=== PATIENT | male | born 1950 | race Caucasian/White ===

== ENCOUNTER → 2021-12-03 | Outpatient (CLI) | payer BC ==
[~2021-12-03] MED LIST: CYMBALTA60 MG PO; DEMEROL100 MG PO; HCTZ/TRIAMTEREN1 CA2 PO; LISINOPRIL2.5 MG PO; LOPRESSOR25 MG PO; NEXIUM40 MG PO; PREDNISONE10 MG PO; QUINAPRIL40 MG PO; VENTOLIN 02.5 MG/3 M NEB; ZITHROMAX250 MG PO
== END | disposition home or self-care (01) ==
LOC: WOUNDCARE 11:12
PROVIDERS: ATTEND Nurse Practitioner Family
DX: E11.621 Type 2 diabetes mellitus with foot ulcer (principal); L97.421 Non-pressure chronic ulcer of left heel and midfoot limited to breakdown of skin; L97.521 Non-pressure chronic ulcer of other part of left foot limited to breakdown of skin; E11.622 Type 2 diabetes mellitus with other skin ulcer; L97.821 Non-pressure chronic ulcer of other part of left lower leg limited to breakdown of skin; L84 Corns and callosities; I10 Essential (primary) hypertension; F17.200 Nicotine dependence, unspecified, uncomplicated; Z96.643 Presence of artificial hip joint, bilateral; Z86.73 Personal history of transient ischemic attack (TIA), and cerebral infarction without residual deficits; Z71.6 Tobacco abuse counseling

== ENCOUNTER → 2021-12-09 | Outpatient (CLI) | payer OTHER | LOC: WOUNDCARE 00:26 | PROVIDERS: ATTEND Nurse Practitioner Family | DX: E11.621 Type 2 diabetes mellitus with foot ulcer (principal); L97.421 Non-pressure chronic ulcer of left heel and midfoot limited to breakdown of skin; L97.521 Non-pressure chronic ulcer of other part of left foot limited to breakdown of skin; E11.622 Type 2 diabetes mellitus with other skin ulcer; L97.822 Non-pressure chronic ulcer of other part of left lower leg with fat layer exposed; I10 Essential (primary) hypertension; F17.200 Nicotine dependence, unspecified, uncomplicated; Z96.643 Presence of artificial hip joint, bilateral; Z71.6 Tobacco abuse counseling; Z86.73 Personal history of transient ischemic attack (TIA), and cerebral infarction without residual deficits ==